=== PATIENT | female | born 1995 | race Caucasian/White ===

== ENCOUNTER 2021-06-13 13:58 | Emergency (ER) | payer BC, SELFPAY ==
--- NOTE | ~2021-06-13 | CT_ITS ---
EXAMINATION: CT abdomen pelvis w con DATE: 06/13/2021 17:19 INDICATION: Right lower quadrant abdominal pain, nausea. History of endometriosis and ovarian cyst. TECHNIQUE: Computed tomography (CT) of the abdomen and pelvis was performed with 100 cc Omnipaque 350 intravenous contrast. Automated exposure control and iterative reconstruction technique were employe d. Exam dose: 375.31 mGy-cm total exam DLP. COMPARISON: None. FINDINGS: The lung bases are clear. Normal heart size. No pericardial or pleural effusion. The liver, gallbladder, bile ducts, spleen, pancreas, pancreatic duct, and adrenal glands and kidneys are unremarkable. Normal caliber of the abdominal aorta. No intraperitoneal or retroperitoneal or pelvic mass lesion or adenopathy or ascites. The uterus is unremarkable. There are left ovarian cysts measuring up to 1.6 cm. The right ovary is u nremarkable. Normal appendix. There is mild colonic diverticulosis; no CT evidence of diverticulitis. No bowel obs truction or intraperitoneal free air. Small fat-containing umbilical hernia. Included skeletal structures are unremarkable. IMPRESSION: Up to 1.6 cm left ovarian cysts Mild colonic diverticulosis; no CT evidence of diverticulitis Normal appendix Reviewed, dictated and finalized at [facility]. Reviewed, dictated and finalized at location B.
--- NOTE | ~2021-06-13 | US_ITS ---
EXAMINATION: US pelvic complete w TV DATE: 06/13/2021 18:19 INDICATION: Right lower quadrant pain, history of endometriosis TECHNIQUE: Multiple transabdominal and endovaginal sonographic images of the pelvis were obtained. COMPARISON: CT from today FINDINGS: The uterus measures 7.8 x 5.7 x 3.9 cm. The endometrial complex measures 13 mm. The right o vary measures 3.4 x 2.3 x 1.4 cm. The left ovary measures 3.2 x 2.4 x 3.0 cm and contains small folli cles. There is normal vascular flow in the ovaries. There is a small amount of likely physiologic hari e fluid in the pelvis. IMPRESSION: 1. No sonographic correlate for the patient's symptoms. Reviewed, dictated and finalized at location A.
[2021-06-13 14:09] VITALS: BP 119/65; PULSE 115; RESP 14; TEMP 36.9; O2SAT 99
[2021-06-13 14:31] LABS: Basophils Percent Auto 0.3 % (0.2-1.2); Eosinophils Percent Auto 0.2 % (0-4.4); Hematocrit 42.6 % (37.0-47.0); Hemoglobin 14.3 g/dL (12.0-15.0); Immature Granulocyte Absolute 0.04 K/mm3 (0.00-0.031); Immature Granulocyte Percent A 0.3 % (0-0.5); Lymphocytes Absolute Auto 1.93 K/mm3 (0.9-3.2); Lymphocytes Percent Auto 16.3 % (18.3-44.2); Mean Corpuscular HGB Conc 33.6 g/dl (32-36); Mean Corpuscular Hemoglobin 31.4 pg (26-34); Mean Corpuscular Volume 93.4 fl (80-100); Mean Platelet Volume 10.4 fl (7.4-10.4); Monocytes Absolute Auto 0.7 K/mm3 (0.1-0.6); Neutrophils Absolute Auto 9.1 K/mm3 (1.3-6.7); Neutrophils Percent Auto 76.9 % (45.5-73.1); Platelet Count Result 239 k/mm3 (150-375); Red Blood Count 4.56 M/mm3 (4.2-5.4); Red Cell Distribution Width 13.4 % (11.5-14.5); White Blood Count 11.9 K/mm3 (4.5-10.0)
[2021-06-13 14:42] LABS: Alanine Aminotransferase 14 U/L (4-35); Albumin Level 5.3 g/dL (3.5-5.1); Alkaline Phosphatase 75 U/L (38-126); Anion Gap 11 mmol/L (8-16); Aspartate Amino Transferase 24 U/L (14-36); Bilirubin,Total 0.7 mg/dL (0.2-1.3); Blood Urea Nitrogen 14 mg/dL (7-17); Calcium 9.7 mg/dL (8.4-10.2); Carbon Dioxide 24 mmol/L (22-30); Chloride 103 mmol/L (98-107); Estimated CRCL calculation 108 ml/min; Estimated Glomerular Filt Rate > 60; Glucose 99 mg/dL (65-110); Lipase 67 U/L (23-300); Sodium 138 mmol/L (137-145)
--- NOTE | 2021-06-13 15:58 | ED.ABDPAIN ---
HPI - Abdominal Pain General Chief Complaint: Abdominal Pain Stated Complaint: ABD PAIN Time Seen by Provider: 06/13/21 15:35 Source: patient Mode of arrival: ambulatory Limitations: no limitations History of Present Illness HPI narrative: The patient is a 26 yo female with a history of migraines, endometriosis who presents for evaluation of abdominal pain. Pain began this morning in the lower middle abdomen, now with migration of the pain to the RLQ. Patient also with three episodes of nausea and vomiting. No blood present in the emesis. Patient with LMP 9/13, normal in length. No urinary symptoms. No vaginal discharge or bleeding. Patient without recent sick contacts. History of chlamydia which has been treated in the past. Patient is sexually active, same partner. Patient without radiation of the pain to the back or flank. No fever. Related Data Allergies Allergy/AdvReac Type Severity Reaction Status Date / Time No Known Allergies Allergy Verified 06/13/21 15:36 Review of Systems Review of Systems: CONSTITUTIONAL: Denies fever, chills, or sweats. EYES: Denies visual changes, redness, or discharge. ENT: Denies rhinorrhea, congestion, sore throat, or otalgia. CARDIOVASCULAR: Denies chest pain, palpitations, or edema. RESPIRATORY: Denies cough or dyspnea. GASTROINTESTINAL: Reports RLQ abd pain, nausea and vomiting GENITOURINARY: Denies dysuria or hematuria. SKIN: Denies rash or itching. MUSCULOSKELETAL: Denies back pain, joint pain, or myalgia. NEUROLOGIC: Denies headache, numbness, or weakness. [facility] Social History Social History (Updated 06/13/21 @ 16:28 by Terese Rivers MD) Smoking status: Never smoker Substance use: current Substance use type: marijuana Gender identity (if verbalized by the patient): Female Exam Narrative: GENERAL: Awake, alert, conversant HEAD: Normocephalic, atraumatic. EYES: PERRLA and EOMI. ENT: Nares clear, no rhinorrhea or epistaxis. Mucous membranes moist. NECK: Supple. CHEST: No respiratory distress, breathing even and non labored HEART: Regular rate, sinus rhythm ABDOMEN:Non distended, RLQ tenderness with guarding, rebound, non rigid, + rosving's sign EXTREMITIES: Normal range of motion. No edema. SKIN: Warm, dry, no rash. NEURO:No focal deficits. Alert and oriented x3 Course Vital Signs Vital signs: Vital Signs Temperature 36.9 C 06/13/21 14:09 Pulse Rate 115 H 06/13/21 14:09 Respiratory Rate 14 06/13/21 14:09 Blood Pressure 119/65 06/13/21 14:09 Pulse Oximetry 99 06/13/21 14:09 Temperature 36.9 C 06/13/21 14:09 Pulse Rate 88 06/13/21 17:30 Respiratory Rate 18 06/13/21 17:30 Blood Pressure 119/71 06/13/21 17:30 Pulse Oximetry 100 06/13/21 17:30 MDM - Abdominal Pain MDM Narrative Medical decision making narrative: Patient presenting for evaluation of right lower quadrant abdominal pain. At the time of assessment, ABCs are intact and vital signs are stable. On exam, patient with right lower quadrant abdominal pain. Concern for possible ovarian cyst versus torsion versus appendicitis given the location of the pain. IV access obtained, labs were drawn. Patient was given IV fluids, antiemetic and pain medication. CT scan is reassuring without evidence of acute appendicitis, diverticulitis or other intra-abdominal pathology. A pelvic ultrasound was obtained which showed normal flow to both ovaries with evidence of ovarian cyst, no other pelvic pathology. Lab and imaging evaluations are reviewed and patient is felt to be a reasonable candidate for outpatient management. Patient was instructed as to limitations of imaging and lab evaluation and encouraged to return to the emergency department her primary physician for repeat exam in 12 hours if continued or worsening pain. Differential Diagnosis Differential diagnosis: Likely abdominal pain, acute appendicitis, calculus of kidney, constipation, diverticulitis, endometriosis, pancreatitis
[2021-06-13 16:40] LABS: Add Urine Microscopic? YES; Appearance Urine Clear (Clear); Bacteria Urine Trace /hpf; Bilirubin Urine Negative (Negative); Blood Urine Negative (Negative); Color Urine Yellow (Yellow); Glucose Urine UA Negative (Negative); Ketones Urine Trace mg/dL (Negative); Leukocyte Esterase Ur Negative LEU/UL (Negative); Mucus Urine Rare /lpf; Nitrate Urine Negative (Negative); Protein Urine 1+ mg/dL (Negative); Specific Grav Ur 1.026 (1.001-1.035); Squamous Epithelial Cell Urine Many /hpf (Few); Urobilinogen Urine Negative mg/dL (<2.0); WBC Urine 0-3 /hpf
[2021-06-13] MEDS: SODIUM CHLORIDE 0.9% IV 1,000 ML 999 ML IV CONT (16:56)
[2021-06-13] MEDS: MORPHINE SULFATE (*CRX) 4 MG/ML INJ IV PUSH (16:56)
[2021-06-13] MEDS: ONDANSETRON INJ 4 MG/2 ML VIAL IV PUSH (16:56)
[2021-06-13 17:30] VITALS: BP 119/71; PULSE 88; RESP 18; O2SAT 100
== END 2021-06-13 19:05 | disposition home or self-care (01) ==
PROVIDERS: Emergency Provider Emergency Medicine
DX: N80.9 Endometriosis, unspecified (principal); N83.202 Unspecified ovarian cyst, left side; K57.90 Diverticulosis of intestine, part unspecified, without perforation or abscess without bleeding
CPT/HCPCS: 36415; 74177; 76830; 76856; 80053; 81001; 81025; 83690; 85025; 96361; 96374; 96375; 99284; J0131; J2270; J2405; J7030; Q9967

== ENCOUNTER 2022-06-30 09:01 | Outpatient (RCR) | payer BC, MEDICAID, SELFPAY ==
--- NOTE | 2022-06-09 10:59 | PC.NURSE ---
Called Dr. Marium More. Informed of variable decelerations noted on tracing. Orders received for BPP. If 04/20, january D/C home.
[2022-06-09 11:04] VITALS: BP 110/73; PULSE 79
--- NOTE | ~2022-06-30 | US_ITS ---
. EXAMINATION: US OB BPP wo non-stress DATE: 06/09/2022 11:37 INDICATION: Variable decelerations. Estimated gestational age of 28 weeks and 2 days. TECHNIQUE: Real-time pelvic ultrasound was performed. COMPARISON: None. FINDINGS: There is a single living fetus in vertex presentation. The placenta is posterior. heart rate i s 142 beats per minute (bpm). Biophysical profile performed by the technologist: breathing (30 sec sustained breathing in 30 minutes): 2 out of 2 movement (3 gross body movements in 30 minutes): 2 out of 2 tone (one episode of pknywid-qcqannsre-hlklqhv limb movement): 2 out of 2 Amniotic fluid pocket (2 cm): 2 out of 2 Total score: 8 out of 8 IMPRESSION: 1. Single living fetus in vertex presentation. 2. Biophysical profile 8 out of 8. Reviewed, dictated and finalized at location A.
[2022-06-30 09:51] VITALS: BP 117/65; PULSE 89
== END 2022-09-07 23:59 | disposition home or self-care (01) ==
LOC: ANHOBOP 09:01
PROVIDERS: Visit Provider Obstetrics & Gynecology
DX: O36.8130 Decreased fetal movements, third trimester, not applicable or unspecified (principal); Z3A.28 28 weeks gestation of pregnancy; Z3A.31 31 weeks gestation of pregnancy
CPT/HCPCS: 59025; 76819

== ENCOUNTER 2022-07-10 16:25 | Outpatient (CLI) | payer BC, MEDICAID, SELFPAY ==
[2022-07-10 16:47] VITALS: BP 137/69; PULSE 109
[2022-07-10 17:00] VITALS: BP 121/66; PULSE 108
[2022-07-10 17:02] LABS: Basophils Percent Auto 0.2 % (0.2-1.2); Eosinophils Absolute Auto 0.1 K/mm3 (0-0.3); Eosinophils Percent Auto 1.1 % (0-4.4); Hematocrit 31.3 % (37.0-47.0); Hemoglobin 10.7 g/dL (12.0-15.0); Immature Granulocyte Absolute 0.12 K/mm3 (0.00-0.031); Lymphocytes Absolute Auto 1.72 K/mm3 (0.9-3.2); Lymphocytes Percent Auto 13.7 % (18.3-44.2); Mean Corpuscular HGB Conc 34.2 g/dl (32-36); Mean Corpuscular Hemoglobin 30.9 pg (26-34); Mean Corpuscular Volume 90.5 fl (80-100); Mean Platelet Volume 10.2 fl (7.4-10.4); Monocytes Absolute Auto 0.7 K/mm3 (0.1-0.6); Monocytes Percent Auto 5.7 % (2.6-8.5); Neutrophils Absolute Auto 9.9 K/mm3 (1.3-6.7); Neutrophils Percent Auto 78.3 % (45.5-73.1); Platelet Count Result 235 k/mm3 (150-375); Red Blood Count 3.46 M/mm3 (4.2-5.4); Red Cell Distribution Width 12.4 % (11.5-14.5); White Blood Count 12.6 K/mm3 (4.5-10.0)
[2022-07-10 17:04] LABS: Appearance Urine Clear (Clear); Bilirubin Urine Negative (Negative); Blood Urine Negative (Negative); Color Urine Yellow (Yellow); Glucose Urine UA Negative (Negative); Ketones Urine Trace mg/dL (Negative); Leukocyte Esterase Ur Negative LEU/UL (NEGATIVE); Nitrate Urine Negative (Negative); Protein Urine 1+ mg/dL (Negative); Urobilinogen Urine 0.2 mg/dL (<2.0)
[2022-07-10 17:14] LABS: Alanine Aminotransferase 25 U/L (6-35); Albumin Level 3.7 g/dL (3.5-5.1); Alkaline Phosphatase 98 U/L (38-126); Anion Gap 7 mmol/L (8-16); Aspartate Amino Transferase 20 U/L (14-36); Bilirubin,Total 0.3 mg/dL (0.2-1.3); Blood Urea Nitrogen 12 mg/dL (7-17); Calcium 8.6 mg/dL (8.4-10.2); Carbon Dioxide 21 mmol/L (22-30); Chloride 106 mmol/L (98-107); Creatinine Urine 156.8 mg/dL; Estimated Glomerular Filt Rate > 60; Glucose 78 mg/dL (65-110); Potassium 3.9 mmol/L (3.4-5.0); Sodium 134 mmol/L (137-145); Total Protein Urine Random 6 mg/dL; Ur Ttl Prot Creatinine Ratio 0.04 mg/mg (0-0.20); Uric Acid 4.6 mg/dL (2.5-7.5)
[2022-07-10 17:15] VITALS: BP 120/78; PULSE 108
[2022-07-10 17:15] LABS: Add Urine Microscopic? YES; Mucus Urine Rare /lpf; Squamous Epithelial Cell Urine Many /hpf (Few)
--- NOTE | 2022-07-10 17:25 | PC.NURSE ---
Called Dr. Marium More with pt status. Informed of pt complaining of elevated BP at home of 140/100. BPs and lab results given. Uterine irritability noted. January D/C home. Rest this weekend and follow up early next week in office.
== END 2022-07-10 17:32 | disposition home or self-care (01) ==
LOC: ANHOBOP 16:33 → ANHOBPP 16:37
PROVIDERS: Visit Provider Obstetrics & Gynecology
DX: O13.9 Gestational [pregnancy-induced] hypertension without significant proteinuria, unspecified trimester (principal)
CPT/HCPCS: 36415; 59025; 80053; 81001; 82570; 84156; 84550; 85025; 87086; 87088; 99199

== ENCOUNTER 2022-08-21 09:36 | Observation (INO) | payer BC, MEDICAID, SELFPAY ==
--- NOTE | 2022-08-21 10:00 | OBADM ---
This patient, Rocio Berg, admitted to the OB room Labor/Delivery/Recovery 104 for observation. Patient/family oriented to hospital policies and general routines including ID bracelet, bed and alarms, visiting hours, pain management, procedures, bathroom and other care routines, personal items, smoking policy, room service/diet, and visiting hours. Patient/Family are encouraged to report perceived risks to care and to ask questions if they do not understand what they are told or what they should do.
--- NOTE | 2022-08-21 10:50 | PM.OBTRLD ---
OB - Triage/Final Diagnosis Visit Information Date of evaluation: 08/21/22 Reason for evaluation: threatened labor Comments/Additional reasons for admission: I have assessed the risk for this patient, Rocio Berg, and determined that she would benefit from observation care.
[2022-08-21 11:22] VITALS: BMI 26.4
== END 2022-08-21 10:57 | disposition home or self-care (01) ==
PROVIDERS: Admitting Provider Obstetrics & Gynecology; Visit Provider Obstetrics & Gynecology
DX: O47.1 False labor at or after 37 completed weeks of gestation (principal); Z3A.38 38 weeks gestation of pregnancy
CPT/HCPCS: G0378; G0379

== ENCOUNTER 2022-08-26 02:18 | Inpatient (IN) | payer BC, MEDICAID, SELFPAY ==
[2022-08-26] VITALS (202 sets, daily range): BP systolic 69–134; BP diastolic 27–100; PULSE 52–170; RESP 16–18; TEMP 36.5–37.7; O2SAT 91–100; BMI 27.4
[2022-08-26] MEDS: LACTATED RINGERS 1,000 ML 999 ML IV CONT (03:07)
[2022-08-26] MEDS: ONDANSETRON INJ 4 MG/2 ML VIAL IV PUSH ×2 (03:11→10:04)
[2022-08-26] MEDS: fentaNYL CITRATE INJ (*CRX) 100 MCG/2 ML VIAL 50 MCG IV PUSH (03:12)
[2022-08-26 03:15] LABS: Basophils Percent Auto 0.2 % (0.2-1.2); Eosinophils Absolute Auto 0.1 K/mm3 (0-0.3); Eosinophils Percent Auto 0.8 % (0-4.4); Hematocrit 33.9 % (37.0-47.0); Hemoglobin 11.1 g/dL (12.0-15.0); Immature Granulocyte Absolute 0.09 K/mm3 (0.00-0.031); Immature Granulocyte Percent A 0.7 % (0-0.5); Lymphocytes Absolute Auto 1.43 K/mm3 (0.9-3.2); Lymphocytes Percent Auto 11.5 % (18.3-44.2); Mean Corpuscular HGB Conc 32.7 g/dl (32-36); Mean Corpuscular Hemoglobin 29.7 pg (26-34); Mean Corpuscular Volume 90.6 fl (80-100); Mean Platelet Volume 10.2 fl (7.4-10.4); Monocytes Absolute Auto 0.6 K/mm3 (0.1-0.6); Monocytes Percent Auto 5.1 % (2.6-8.5); Neutrophils Absolute Auto 10.2 K/mm3 (1.3-6.7); Neutrophils Percent Auto 81.7 % (45.5-73.1); Platelet Count Result 229 k/mm3 (150-375); Red Blood Count 3.74 M/mm3 (4.2-5.4); Red Cell Distribution Width 13.2 % (11.5-14.5); White Blood Count 12.5 K/mm3 (4.5-10.0)
--- NOTE | 2022-08-26 03:15 | LDADM ---
This patient, Rocio Berg, was admitted to Labor/Delivery/Recovery 102 on 08/26/22 at 02:18. Plans for labor, pain management and were discussed with patient. Patient/family oriented to hospital policies and general routines including ID bracelet, bed and alarms, visiting hours, pain management, procedures, bathroom and other care routines, personal items, smoking policy, room service/diet and guest tray routines, security routines, and visiting hours. Patient/Family are encouraged to report perceived risks to care and to ask questions if they do not understand what they are told or what they should do. See OBIX for further documentation.
--- NOTE | 2022-08-26 03:53 | WPDANESEPP ---
Anes - Eval Pre Procedure Procedure: labor epidural Date/Time: 08/26/22 03:53 Pre Op Diagnosis: contractions Patient Data Age: 27 Gender: F Height: 1.73 m Weight: 81.8 kg Last Vital Signs Pulse Ox 100 08/26/22 03:53 O2 Del Method Room Air 08/26/22 03:15 Allergies Allergy/AdvReac Type Severity Reaction Status Date / Time No Known Allergies Allergy Verified 06/13/21 15:36 Home Medications Medication Instructions Recorded Confirmed Type ondansetron 4 mg disintegrating 4 mg PO Q6H PRN Nausea #30 tabs 08/21/22 Rx tablet vit no.95-ferrous 1 tablet PO DAILY 08/21/22 08/21/22 History fumarate 28 mg-folic acid 800 mcg tablet () Laboratory Tests 08/26/22 08/26/22 03:06 03:06 WBC 12.5 K/mm3 H K/mm3 (4.5-10.0) RBC 3.74 M/mm3 L M/mm3 (4.2-5.4) Hgb 11.1 g/dL L g/dL (12.0-15.0) Hct 33.9 % L % (37.0-47.0) MCV 90.6 fl fl (80-100) MCH 29.7 pg pg (26-34) MCHC 32.7 g/dl g/dl (32-36) RDW 13.2 % % (11.5-14.5) Plt Count 229 k/mm3 k/mm3 (150-375) MPV 10.2 fl fl (7.4-10.4) Immature Gran % (Auto) 0.7 % H % (0-0.5) Neut % (Auto) 81.7 % H % (45.5-73.1) Lymph % (Auto) 11.5 % L % (18.3-44.2) Kay % (Auto) 5.1 % % (2.6-8.5) Eos % (Auto) 0.8 % % (0-4.4) Baso % (Auto) 0.2 % % (0.2-1.2) Lymph # (Auto) 1.43 K/mm3 K/mm3 (0.9-3.2) Kay # (Auto) 0.6 K/mm3 K/mm3 (0.1-0.6) Eos # (Auto) 0.1 K/mm3 K/mm3 (0-0.3) Baso # (Auto) 0.0 K/mm3 K/mm3 (0.0-0.1) Abs Immat Gran (auto) 0.09 K/mm3 H K/mm3 (0.00-0.031) Absolute Neuts (auto) 10.2 K/mm3 H K/mm3 (1.3-6.7) Absolute Nucleated RBC 0.0 K/mm3 K/mm3 (0.0-0.012) Nucleated RBC % 0.0 % % (0.0-0.2) RPR Pending Patient hx anesthesia problems: none Family hx anesthesia problems: none Results Review: All pre-operative results and documents have been reviewed as part of the pre-operative evaluation. [facility] Past Medical History Medical History Anxiety and depression Family History Family History Grandparent Acute myocardial infarction Diabetes mellitus Grandparent Melanoma Grandparent Melanoma Grandparent Diabetes mellitus Social History Social History Smoking status: Never smoker Second hand tobacco smoke exposure: No Substance use: never Substance use type: marijuana Lack of Transportation: No Lack of Food: Never True Current Housing: I Have Housing Concerned About Future Housing: No Difficulty Paying Gas/Electric Bills: No Difficulty Paying for Meds: No Currently Unemployed: No Education: High School Diploma/GED Difficulty w/ Childcare or Family Care: No Gender identity (if verbalized by the patient): Female Spiritual care concerns: No Exam Day of Procedure 08/26/22 03:53 Patient weight: overweight Heart: regular rate and rhythm Lungs: normal air movement Airway: Mallampati scale Neurological: alert and oriented
[2022-08-26] MEDS: LACTATED RINGERS 1,000 ML 125 ML IV CONT ×2 (04:05→09:13)
[2022-08-26] MEDS: ePHEDrine sulfate INJ 50 MG/ML AMPUL IV PUSH ×2 (04:47→05:26)
--- NOTE | 2022-08-26 05:58 | PM.IMHP ---
H&P: HPI History of Present Illness Date/Time: 08/26/22 05:58 Chief Complaint: labor Narrative: set 27-year-old 2 para 0010 whose last menstrual period was October of 2021, EDC is 08/30/2022, confirmed by 9 week ultrasound who presents at 39 weeks gestation in active labor. Her has been uncomplicated although she was positive for THC on initial admission. [facility] Past Medical History Medical History Anxiety and depression Family History Family History Grandparent Acute myocardial infarction Diabetes mellitus Grandparent Melanoma Grandparent Melanoma Grandparent Diabetes mellitus Social History Social History Smoking status: Never smoker Second hand tobacco smoke exposure: No Substance use: never Substance use type: marijuana Lack of Transportation: No Lack of Food: Never True Current Housing: I Have Housing Concerned About Future Housing: No Difficulty Paying Gas/Electric Bills: No Difficulty Paying for Meds: No Currently Unemployed: No Education: High School Diploma/GED Difficulty w/ Childcare or Family Care: No Gender identity (if verbalized by the patient): Female Spiritual care concerns: No Meds Home Medications and Allergies Home Medications Medication Instructions Recorded Confirmed Type ondansetron 4 mg disintegrating 4 mg PO Q6H PRN Nausea #30 tabs 08/21/22 Rx tablet vit no.95-ferrous 1 tablet PO DAILY 08/21/22 08/21/22 History fumarate 28 mg-folic acid 800 mcg tablet () Allergies Allergy/AdvReac Type Severity Reaction Status Date / Time No Known Allergies Allergy Verified 06/13/21 15:36 Vital Signs Vital Signs - 24 hr 08/26/22 03:53 08/26/22 03:58 08/26/22 04:01 Temperature Pulse Rate 92 Blood Pressure 118/73 Pulse Oximetry 100 98 Oxygen Delivery 08/26/22 04:03 08/26/22 04:04 08/26/22 04:05 Temperature Pulse Rate 96 106 H Blood Pressure 120/73 120/60 Pulse Oximetry 100 Oxygen Delivery 08/26/22 04:08 08/26/22 04:10 08/26/22 04:13 Temperature Pulse Rate 110 H 107 H 68 Blood Pressure 134/87 133/82 130/100 H Pulse Oximetry 99 100 Oxygen Delivery 08/26/22 04:15 08/26/22 04:16 08/26/22 04:18 Temperature Pulse Rate 100 91 89 Blood Pressure 119/65 119/59 L 112/44 L Pulse Oximetry 100 Oxygen Delivery 08/26/22 04:20 08/26/22 04:21 08/26/22 04:23 Temperature Pulse Rate 97 Blood Pressure 103/51 L 92/68 L Pulse Oximetry 100 Oxygen Delivery 08/26/22 04:25 08/26/22 04:26 08/26/22 04:28 Temperature Pulse Rate 100 88 Blood Pressure 106/72 104/50 L Pulse Oximetry 100 Oxygen Delivery 08/26/22 04:30 08/26/22 04:31 08/26/22 04:33 Temperature Pulse Rate 86 87 Blood Pressure 98/45 L 99/50 L Pulse Oximetry 100 Oxygen Delivery 08/26/22 04:35 08/26/22 04:36 08/26/22 04:38 Temperature Pulse Rate 81 81 Blood Pressure 100/61 77/59 L Pulse Oximetry 100 Oxygen Delivery 08/26/22 04:40 08/26/22 04:41 08/26/22 04:43 Temperature Pulse Rate 79 122 H Blood Pressure 105/60 70/27 L Pulse Oximetry 100 Oxygen Delivery 08/26/22 04:45 08/26/22 04:46 08/26/22 04:48 Temperature Pulse Rate 86 85 Blood Pressure 93/40 L 96/67 L Pulse Oximetry 100 Oxygen Delivery 08/26/22 04:50 08/26/22 04:51 08/26/22 04:53 Temperature Pulse Rate 80 93 Blood Pressure 101/50 L 95/64 L Pulse Oximetry 100 Oxygen Delivery 08/26/22 04:55 08/26/22 04:56 08/26/22 04:58 Temperature Pulse Rate 89 91 Blood Pressure 108/45 L 97/45 L Pulse Oximetry 100 Oxygen Delivery 08/26/22 05:00 08/26/22 05:01 08/26/22 05:06 Temperature Pulse Rate 88 Blood Pressure 102/46 L Pulse Oximetry 9
[2022-08-26] MEDS: LORATADINE 10 MG TABLET PO (07:11)
[2022-08-26] MEDS: NALBUPHINE HCL INJ 10 MG/ML AMPUL 2 MG IV PUSH ×2 (08:27→11:46)
[2022-08-26] MEDS: SODIUM CHLORIDE 0.9% IV 300 ML 600 ML I-UTERINE (10:00)
--- NOTE | 2022-08-26 10:39 | PM.OBPNLAB ---
Pain Control Date/time seen: 08/26/22 10:39 Pain control: tolerating well and epidural Pelvic Exam Dilation (cm): 6 station: -1 Amniotic membrane status: Leaking
[2022-08-26 11:07] LABS: Rapid Plasma Reagin Non-Reactive (NonReactive)
[2022-08-26] MEDS: OXYTOCIN 30 UNITS/NS 500 ML 30 UNITS/500 ML BAG IV CONT (11:08)
--- NOTE | 2022-08-26 14:03 | PM.OBPRVD ---
OB - Delivery Note Procedure Delivery date: 08/26/22 Induction method: None Delivery augmentation: Pitocin Delivery monitor: External FHT and Internal Uterine Route of delivery: Episiotomy description: None Laceration Description: None Anesthesia type: Epidural Disposition: Floor [place] Baby Date of : 08/26/22 Time of : 13:56 Weeks of gestation at delivery: 39 presentation: vertex position: Right Occiput Anterior Placenta delivery description: Spontaneous Cord Vessel Description: 3 Vessels score one minute: 8 score five minutes: 9
--- NOTE | 2022-08-26 16:33 | OBPPTRN ---
Patient transferred to post room # 288 via wheelchair accompaied by fob. Oriented to unit, room, information board, rooming in, admission packet and security measures. Patient verbalizes understanding. PT and fob both received instructions this shift per one to one discussion, mom baby care guide, and demonstrations. PT received such instructions with out any barriers to learning at this time.
[2022-08-26] MEDS: IBUPROFEN 600 MG TABLET PO (18:50)
[2022-08-26] MEDS: DOCUSATE SODIUM 100 MG CAPSULE PO (18:50)
[2022-08-26] MEDS: ACETAMINOPHEN 325 MG TABLET 650 MG PO (22:02)
[2022-08-27 00:08] VITALS: BP 99/62; PULSE 89; RESP 16; TEMP 36.7; O2SAT 99
[2022-08-27 05:30] VITALS: BP 116/71; PULSE 86; RESP 16; TEMP 36.8; O2SAT 99
[2022-08-27 05:37] LABS: Hematocrit 31.5 % (37.0-47.0); Hemoglobin 10.3 g/dL (12.0-15.0)
--- NOTE | 2022-08-27 07:59 | PM.OBPNVD ---
OB - PN: Subj Subjective Date/time seen: 08/27/22 07:59 Patient comments: no complaints and pain well controlled baby status: doing well OB - PN: Obj Data Labs 08/27/22 04:45 Labs: Laboratory Results - last 24 hr 08/26/22 08/27/22 03:06 04:45 Hgb 10.3 L Hct 31.5 L RPR Non-reactive OB - PN A/P Plan day: 1 Plan: routine care Time Spent With Patient Time: Total time spent is greater than 50% in coordination of care (as documented) at patient's floor/unit and/or counseling patient: Time with patient: less than 15 minutes Exam Const: General: cooperative, healthy appearing and comfortable Nutritional Appearance: average body habitus Orientation/consciousness: oriented to person, oriented to place and oriented to time Resp: Effort & Inspection: normal respiratory effort GI: Inspection: normal to inspection (Fundus firm below the umbilicus)
[2022-08-27 08:55] VITALS: BP 116/59; PULSE 90; RESP 18; TEMP 36.9; O2SAT 99
[2022-08-27] MEDS: MULTIVIT/MIN/PREN/FOL AC/IRON TABLET 1 TAB PO (09:42)
[2022-08-27] MEDS: DOCUSATE SODIUM 100 MG CAPSULE PO (09:42)
[2022-08-27] MEDS: ACETAMINOPHEN 325 MG TABLET 650 MG PO ×2 (09:42→16:02)
--- NOTE | 2022-08-27 10:28 | WPDANLDPN2 ---
Anes-Prog Note L&D Date/Time: 08/27/22 10:28 Comfortable throughout: labor and delivery Neuraxial method: epidural Epidural/Spinal procedure site: clean & non-tender Neuro status: Neuro function grossly intact. Cardiovascular status: normal Respiratory status: normal Airway patency: baseline Mental status: baseline Post-Op hydration status: normal Vital Signs: Last Vital Signs Temp 36.9 C 08/27/22 08:55 Pulse 90 08/27/22 08:55 Resp 18 08/27/22 08:55 BP 116/59 L 08/27/22 08:55 Pulse Ox 99 08/27/22 08:55 O2 Del Method Room Air 08/27/22 09:00 Pain score (VAS): 09/22 I/O: Intake & Output 08/26/22 08/27/22 08/27/22 23:59 07:59 15:59 Intake Total 1980 Output Total 110 Balance 1870 Post-procedural complaints: none Patient feedback: Patient satisfied with anesthetic care.
--- NOTE | 2022-08-27 11:32 | PM.DS ---
DS: Admitting Diagnosis Discharge Date 08/28/2022 Admitting Diagnosis Term DS: Discharge Diagnosis Discharge Diagnosis (1) Term : Code(s): Z34.90 - Encounter for supervision of normal , unspecified, unspecified trimester Status: Acute DS: Summary Hospital Course Reason for hospitalization: Patient was admitted at term for induction of labor Hospital Course: Patient underwent spontaneous vaginal delivery with epidural anesthesia. She remained afebrile. She was up, breast-feeding, voiding without difficulty, ambulating, generally without complaints. Time Spent with Patient Time attestation: Total time spent providing and/or coordinating discharge services: Exam Const: General: cooperative, healthy appearing, comfortable, well groomed and average body habitus Orientation/consciousness: oriented to person, oriented to place and oriented to time HENMT: Head: normal to inspection Resp: Effort & Inspection: normal respiratory effort Cardio: Rate: regular rate Rhythm: regular rhythm Heart sounds: S1 normal heart sound present and S2 normal heart sound present GI: Inspection: normal to inspection (Fundus firm below the umbilicus) DS: Data Data Completed and Pending Labs on day of discharge: Labs from last 24 hours 08/27/22 04:45 Hgb 10.3 L Hct 31.5 L Discharge Plan Discharge Attending physician on discharge: Reddy Hollins Discharging Clinician: Reddy Hollins Patient Disposition: Home, Self-Care Activity: may shower, no straining and pelvic rest Diet: heart healthy Wound Care Instructions: follow printed instructions Patient Instructions: Antibiotic Form Stand Alone Forms: General Discharge Information Follow-up/Referrals: Reddy Hollins MD [Physician] - Discharge Medications: Continued PNV cmb#95-ferrous fumarate-FA [] 28 mg iron- 800 mcg Tablet 1 tablet PO DAILY ondansetron 4 mg Tablet,Disintegrating 4 mg PO Q6H PRN (Reason: Nausea) Qty: 30 0RF Date of admission: 08/26/22 02:18 Primary Care Provider: UNKNOWN,DOCTOR Admitting Provider: Reddy Hollins Attending physician on admission: Reddy Hollins Condition: Stable
[2022-08-27 12:15] VITALS: BP 119/68; PULSE 93; RESP 18; TEMP 36.7; O2SAT 99
--- NOTE | 2022-08-27 15:24 | PC.NURSE ---
[id number] Introductions were made and Mother led the conversation with her?plans to feed?her and the?experience so far. Resources provided for inpatient and outpatient services using mom/baby guide. Mother voiced understanding of information and requests assistance. is sleepy and reluctant. Encouraged understanding of the benefits of skin to skin (demonstrating unwrapping infant and placing vertically on her chest), massage touch, how to watch for early feeding signs, frequency of feeding on demand about every 8-12 times in 24 hours (every 2-3 hours), milk production, duration of feeding cues, responsive feeding, signs of adequate intake/output and how to record on the feeding sheet. is sleepy and reluctant having had a circumcision and oral pain medication earlier. Reviewed stimulating infant to wake and breastfeed. Once feeding cues were visualized, then RN reviewed positioning and ear, shoulder, hip alignment, supporting the breast, asymmetrical latch (off-center), and leading with the chin with a big, open, wide gape. attempts to latch optimally to the breast in football position but remains sleepy and reluctant. Breast pump provided due to ineffective . Instructions given on cleaning, care, usage, that there should be no pain, pumping schedule for milk production, collection, and storage of human milk. Mother is encouraged to record pumping schedule on the feeding sheet. Patient was assessed for correct placement, flange size, to pump for comfort and nipple stretching/stimulation for adequate milk production every 3 hours (8 times in 24 hours) 1-2 times at night. Mother voiced understanding of the education shared along with mom and baby guide for additional resource information. RN syringe fed 4mls rewarding efforts of big open wide mouth and sucking on mother's finger. Reported to the primary RN. [id number] Consulted with patient to assess needs related to . Mother works well with her infant with encouragement and education. Encouraged understanding of the benefits of skin to skin (demonstrating unwrapping infant and placing vertically on her chest), massage touch, how to watch for early feeding signs, frequency of feeding on demand about every 8-12 times in 24 hours (every 2-3 hours), milk production, duration of feeding cues, responsive feeding, signs of adequate intake/output and how to record on the feeding sheet. Reviewed stimulating to wake and breastfeed. Once feeding cues were visualized, then RN reviewed positioning and ear, shoulder, hip alignment, supporting the breast, asymmetrical latch (off-center), and leading with the chin with a big, open, wide gape. Infant attempts to latch optimally to the right breast in football position for a few sucks. With the tight tongue infant is unable to maintain effective . Education given to mother of how to visualize suck/swallow ratios. Even with a shallow latch for a few sucks shows signs of ingesting milk. Mother is able to spray milk from her breast. Nipple is misshaped after attempt. Nipple care reviewed with optimal latch and good positioning. Infant is to have a frenulectomy this evening. Reviewed how to practice optimal latching again once has more movement with his tongue. Mother is pumping her breast holding infant skin to skin and plans to syringe feed colostrum to the infant as we did earlier in the day. Reviewed good handwashing when or touching the breast/nipples to prevent infection. Resources used to facilitate learning were used with the visual handouts, tool, mom and baby guide. Mother voiced understanding of responsive feedings, stimulating with skin to skin, hand expressed colostrum, massage touch, talking to to encourage if it has been 2 -3 hours since the start of the last , to call if does not latch or there is discomfort with . Re
[2022-08-27 17:30] VITALS: BP 119/60; PULSE 89; RESP 18; TEMP 36.9; O2SAT 100
[2022-08-27 19:57] VITALS: BP 111/73; PULSE 78; RESP 18; TEMP 36.6; O2SAT 97
[2022-08-28] MEDS: IBUPROFEN 600 MG TABLET PO ×2 (00:14→08:58)
--- NOTE | 2022-08-28 06:20 | PM.OBPNVD ---
OB - PN: Subj Subjective Date/time seen: 08/28/22 06:20 Patient comments: no complaints and pain well controlled baby status: doing well and nursing well OB - PN: Obj Data Labs 08/27/22 04:45 OB - PN A/P Plan day: 2 Plan: routine care, discharge home and follow up 6 weeks Time Spent With Patient Time: Total time spent is greater than 50% in coordination of care (as documented) at patient's floor/unit and/or counseling patient: Time with patient: less than 15 minutes Exam Const: General: cooperative, healthy appearing and comfortable Nutritional Appearance: average body habitus Orientation/consciousness: oriented to person, oriented to place and oriented to time HENMT: Head: normal to inspection Resp: Effort & Inspection: normal respiratory effort GI: Inspection: normal to inspection ( fundus firm below the umbilicus)
[2022-08-28] MEDS: MULTIVIT/MIN/PREN/FOL AC/IRON TABLET 1 TAB PO (08:58)
[2022-08-28] MEDS: DOCUSATE SODIUM 100 MG CAPSULE PO (08:58)
[2022-08-28 10:08] VITALS: BP 112/72; PULSE 75; RESP 18; TEMP 36.6; O2SAT 98
--- NOTE | 2022-08-28 12:30 | PC.NURSE ---
Patient viewed the discharge video Mother & Baby Care, The First Two Weeks . Patient was given the opportunity and encouraged to ask questions. Patient verbalized understanding of information shared and has been given the mother/baby guide for home reference.
--- NOTE | 2022-08-28 14:04 | PC.NURSE ---
[id number] Consulted with patient to assess needs related to post frenulectomy of infant. Mother led conversation with her experience with feeding baby through the night. Mother works well with her with encouragement. Reviewed working with , breast, nipples and how to protect the nipples with an optimal deep latch, good positioning, use of the sandwich hold and good hand washing. Encouraged understanding the benefits of skin to skin, reviewed stimulating with massage touch, position changes, responding to feeding cues, frequencies of feeding 8-12 times in 24 hours (approximately 2-3 hours), duration of feedings, milk production, intake/output feeding sheet and signs of adequate intake encouraging swallowing at the breast. Reviewed positioning and alignment, supporting breast, off-centered (asymmetrical latch) and leading with the chin with big, open, wide gape. Infant latched optimally to the right breast in football position. Education given to mother of how to visualize suck/swallow ratios and actively drinking at the breast. Infant was able to maintain latch without discomfort to mother. Nipple care reviewed with optimal latch, good positioning and to have clean hands when touching the nipple/breast as needed. Resources used to facilitate learning were used from the visual handout, tool, mom and baby guide. Mother voiced understanding of the education shared, calling for assistance if the does not latch or if there is discomfort with . Reported to the primary RN. [id number] Mother requested assistance with latching her to the left breast. Reviewed positioning and alignment, supporting breast, off-centered (asymmetrical latch) and leading with the chin with big, open, wide gape. latched optimally to the left breast in football position. Mother is feeding appropriately for growth of and understands stimulating infant to eat if needed. has had appropriate feedings in the last 24 hours meets the outcomes for weight, output and jaundice at this time. Mother states she is confident to continue , pumping if necessary, then supplementing with breastmilk or formula to feed her at home, when to call for assistance and denies any additional assistance or education at this time. Reminded mother the best way to get more comfortable with is to practice . Reinforced understanding of milk production, transition of milk, signs of adequate intake, prevention/relief of engorgement, responsive after visualizing feeding cues, the different methods of stimulating to breastfeed 2-3 hours after the start of the last feeding, community resources, medication information reviewed per [employer] and when to call a provider using the resource of the mom and baby guide. Mother voiced understanding of the education shared. Reported to the primary RN.
[2022-08-29 09:14] VITALS: BP 123/78; PULSE 95; RESP 20; TEMP 36.7; O2SAT 99
== END 2022-08-28 13:25 | disposition home or self-care (01) | DRG 807 ==
LOC: ANHLDR 03:14 → ANHOB2 16:51
PROVIDERS: Admitting Provider Obstetrics & Gynecology; Visit Provider Obstetrics & Gynecology
DX: O36.8330 Maternal care for abnormalities of the fetal heart rate or rhythm, third trimester, not applicable or unspecified (principal); Z37.0 Single live birth; Z3A.39 39 weeks gestation of pregnancy
CPT/HCPCS: 36415; 85014; 85018; 85025; 86592; 86850; 86900; 86901; A9270; J2300; J2405; J2590; J2795; J3010; J7030; J7120